=== PATIENT | male | born 1970 | race Caucasian/White ===

== ENCOUNTER 2020-12-08 08:07 | Emergency (ER) | payer OTHER ==
[~2020-12-08] VITALS: Ht 172.7 cm; Wt 81.7 kg
--- NOTE | ~2020-12-08 | EKG ---
[place] [address] ELECTROCARDIOGRAM REPORT Name: DARCIE MAYERS Room: [facility]#: [id number] Admission: 12/08/20 Attend Phys: Discharge: Date of : 68 Date of Service: 12/08/20 1049 Report #: [id number] THIS REPORT FOR: //name// [facility] ED Test Date: 2020-12-08 Test Time: 10:49:20 Pat Name: DARCIE MAYERS Department: Room: Gender: Economics Lecturer: JEREMIAS : 1970 Requested By: Khoa Simms Order Number: [id number] MD: Measurements Intervals [place] Rate: 61 P: 36 [place]: 188 QRS: 22 QRSD: 94 T: 11 QT: 425 QTc: 428 Interpretive Statements Sinus rhythm Baseline wander in lead(s) II,III,aVL,aVF No previous ECG available for comparison [email or web address] By: 1049 1049 Epiphany MD [place] /EPI
[2020-12-08 09:54] LABS: ABSOLUTE MONOCYTES 0.5 thou/uL (0.0-1.2); ABSOLUTE NEUTROPHILS 8.1 thou/uL (1.6-8.1); BASOPHILS 0.4 %; EOSINOPHILS 0.2 %; HEMATOCRIT 44.6 % (42.0-52.0); HEMOGLOBIN 15.1 gm/dL (14.0-18.0); LYMPHOCYTES 10.2 %; MCH 30.2 pg (26.0-34.0); MCHC 33.8 g/dL (28.0-37.0); MCV 89.1 fL (80.0-100.0); MONOCYTES 5.5 %; MPV 8.2 fl. (7.2-11.1); NUCLEATED RBCS 0 /100WBC; PLATELET COUNT* 200 thou/uL (150-400); POLYS 83.7 %; RBC 5.01 mil/uL (4.50-6.00); RDW-CV 13.5 % (10.5-14.5); WBC 9.7 thou/uL (4.0-11.0)
[2020-12-08 10:04] LABS: CALCIUM 8.8 mg/dL (8.5-10.1); CREATININE 1.6 mg/dL (0.6-1.3); POTASSIUM 4.1 mmol/L (3.5-5.1)
[2020-12-08 10:08] LABS: ALBUMIN 4.1 g/dL (3.4-5.0); TOTAL BILIRUBIN 0.3 mg/dL (<0.1-1.0); TOTAL PROTEIN 7.4 g/dL (6.4-8.2)
[2020-12-08] MEDS ORDERED: ZOFRAN ODT4 MG DISSOLVE (13:39)
[2020-12-08] MEDS ORDERED: HYDROCODON-ACE1 EAC7 PO (13:39)
[2020-12-08 14:00] VITALS: BP 140/93
--- NOTE | 2020-12-08 14:51 | EKG ---
[place] [address] ELECTROCARDIOGRAM REPORT Name: TY MAYERSRY Carmela Room: [facility]#: [id number] Admission: 12/08/20 Attend Phys: Discharge: 12/08/20 Date of : 68 Date of Service: 12/08/20 1050 Report #: [id number] THIS REPORT FOR: //name// [facility] ED Test Date: 2020-12-08 Test Time: 10:50:03 Pat Name: DARCIE MAYERS Department: Room: Gender: Creative Developer: CD : 1970 Requested By: Khoa Simms Order Number: [id number] MD: Nish Lanier Measurements Intervals [place] Rate: 61 P: 33 [place]: 189 QRS: 27 QRSD: 96 T: 12 QT: 425 QTc: 428 Interpretive Statements Sinus rhythm Compared to ECG 12/08/2020 10:49:20 No significant changes Electronically Signed On 12-08-2020 14:51:32 CDT by Nish Lanier [email or web address] <ELECTRONICALLY SIGNED> By: Nish Lanier MD, [facility] 12/08/20 1451 1050 1050 Nish Lanier MD, [facility] /EPI
--- NOTE | 2020-12-08 14:51 | EKG ---
[place] [address] ELECTROCARDIOGRAM REPORT Name: MAYERSDARCIE Room: [facility]#: [id number] Admission: 12/08/20 Attend Phys: Discharge: 12/08/20 Date of : 68 Date of Service: 12/08/20 1049 Report #: [id number] THIS REPORT FOR: //name// [facility] ED Test Date: 2020-12-08 Test Time: 10:49:20 Pat Name: DARCIE MAYERS Department: Room: Gender: Oliving Machine Operator: CD : 1970 Requested By: Khoa Simms Order Number: [id number] Arun MD: Nish Lanier Measurements Intervals [place] Rate: 61 P: 36 [place]: 188 QRS: 22 QRSD: 94 T: 11 QT: 425 QTc: 428 Interpretive Statements Sinus rhythm Baseline wander in lead(s) II,III,aVL,aVF No previous ECG available for comparison Electronically Signed On 12-08-2020 14:51:28 CDT by Nish Lanier [email or web address] <ELECTRONICALLY SIGNED> By: Nish Lanier MD, FAC 12/08/20 1451 1049 1049 Nish Lanier MD, [facility] /EPI
== END 2020-12-08 14:01 | disposition home or self-care (01) ==
LOC: M.ERS 08:07
PROVIDERS: Emergency Medicine Emergency Medical Services
DX: K40.90 Unilateral inguinal hernia, without obstruction or gangrene, not specified as recurrent (principal); R10.31 Right lower quadrant pain; R11.2 Nausea with vomiting, unspecified; R19.7 Diarrhea, unspecified